=== PATIENT | male | born 1940 | race Asian ===

== ENCOUNTER 2017-03-17 19:40 | Emergency (ER) | payer OTHER ==
[2017-03-17 19:55] VITALS: BP 128/74; PULSE 75; TEMP 98; BMI 25.7
--- NOTE | 2017-03-17 20:25 | PDOC ---
History of Present Illness - History of Present Illness Initial Comments: 03/17/17 20:27 The patient is a 76 year old male, with a significant past medical history of hypertension, who presents to the emergency department with a skin avulsion to his left 1st digit for over a week. The patient states he peeled off a flap of skin and has had an open wound to his left 1st digit since. He reports putting bacitracin daily, but denies improvement of his wound. He denies pain, but reports numbness to the distal end of his 1st left digit. He states there was no wound to the digit prior to noticing the skin he peeled off. He reports having an appointment with his PCP in 03/08/17. He reports a former history of diabetes, however, states his PCP discontinued his metformin a while ago because he no longer needed it. He denies chest pain, shortness of breath, headache and dizziness. He denies fever, chills, nausea, vomit, diarrhea and constipation. He denies dysuria, frequency, urgency and hematuria. Allergies: NKDA <Brittany Charles - Last Filed: 03/17/17 20:26> <Ector Renee - Last Filed: 03/18/17 03:57> - General Chief Complaint: Pain, Acute Stated Complaint: SKIN PEELED OFF LEFT INDEX FINGER Past History <Brittany Charles - Last Filed: 03/17/17 20:26> - Past Medical History HTN: Yes - Immunization History Immunization Up to Date: Yes - Psycho/Social/Smoking Cessation Hx Anxiety: No Suicidal Ideation: No Smoking History: Never smoked Have you smoked in the past 12 months: No Information on smoking cessation initiated: No Hx Alcohol Use: No Drug/Substance Use Hx: No Substance Use Type: None <Ector Renee - Last Filed: 03/18/17 03:57> - Past Medical History Allergies/Adverse Reactions: Allergies Allergy/AdvReac Type Severity Reaction Status Date / Time No Known Allergies Allergy Verified 03/17/17 19:41 Home Medications: Ambulatory Orders Losartan Potassium 100 mg PO DAILY 03/17/17 Nifedipine [Procardia Xl] 60 mg PO DAILY 03/17/17 Review of Systems - Review of Systems Able to Perform ROS?: Yes Comments:: 03/17/17 20:27 CONSTITUTIONAL: Absent: fever, chills, diaphoresis, generalized weakness, malaise, loss of appetite HEENT: Absent: rhinorrhea, nasal congestion, throat pain, throat swelling, difficulty swallowing, mouth swelling, ear pain, eye pain, visual Changes CARDIOVASCULAR: Absent: chest pain, syncope, palpitations, irregular heart rate, lightheadedness , peripheral edema RESPIRATORY: Absent: cough, shortness of breath, dyspnea with exertion, orthopnea, wheezing, stridor, hemoptysis GASTROINTESTINAL: Absent: abdominal pain, abdominal distension, nausea, vomiting, diarrhea, constipation, melena, hematochezia GENITOURINARY: Absent: dysuria, frequency, urgency, hesitancy, hematuria, flank pain, genital pain MUSCULOSKELETAL: Absent: myalgia, arthralgia, joint swelling SKIN: (+) avulsion with distal numbness to left 1st digit. Absent: rash, itching, pallor HEMATOLOGIC/IMMUNOLOGIC: Absent: easy bleeding, easy bruising, lymphadenopathy, frequent infections ENDOCRINE: Absent: unexplained weight gain, unexplained weight loss, heat intolerance, cold intolerance NEUROLOGIC: Absent: headache, focal weakness or paresthesias, dizziness, unsteady gait, seizure, mental status changes, bladder or bowel incontinence PSYCHIATRIC: Absent: anxiety, depression, suicidal or homicidal ideation, hallucinations. <Brittany Charles - Last Filed: 03/17/17 20:26> *Physical Exam - Vital Signs Last Vital Signs Temp Pulse Resp BP Pulse Ox 98 F 75 16 128/74 97 03/17/17 19:51 03/17/17 19:51 03/17/17 19:51 03/17/17 19:51 03/17/17 19:51 - Physical Exam Comments: 03/17/17 20:28 GENERAL: Well developed, well nourished. Awake and alert. No acute distress. HEENT: Normocephalic, atraumatic. PERRLA, EOMI. No conjunctival pallor. Sclera are non- icteric. Moist mucous membranes. Oropharynx is clear. NECK: Supple. Full ROM. No JVD. Carotid pulses 2+ and symmetric, without bruits. No thyromegaly. No lymphadenopathy. MUSCULOSKELETAL Normal range of motion at all joints. No bony deformities or tenderness. No CVA tenderness. EXTREMITIES: No cyanosis. No clubbing. No edema. No calf tenderness. SKIN: (+) Stage 4 skin avulsion on the palmar side of the distal 1st digit of Left upper extremity without surrounding erythema or increased warmth. Normal capillary refill. No jaundice. NEUROLOGICAL: Alert, awake, appropriate. Cranial nerves 2-12 intact. No motor deficits in the in face, upper extremities and lower extremities. Normoreflexic in the upper and lower extremities. Normal speech. Toes are down-going bilaterally. Gait is normal without ataxia. PSYCHIATRIC: Cooperative. Good eye contact. Appropriate mood and affect. <Brittany Charles - Last Filed: 03/17/17 20:26> - Vital Signs Last Vital Signs Temp Pulse Resp BP Pulse Ox 98 F 75 16 128/74 97 03/17/17 19:51 03/17/17 19:51 03/17/17 19:51 03/17/17 19:51 03/17/17 19:51 <Ector Renee - Last Filed: 03/18/17 03:57> Medical Decision Making - Medical Decision Making 03/18/17 03:56 skin avulsion/ ulceration topical skin care plastics fu <Ector Renee - Last Filed: 03/18/17 03:57> *DC/Admit/Observation/Transfer - Attestations Scribe Attestion: 03/17/17 20:30 Documentation prepared by Brittany Charles, acting as medical records technician for Emergency Dept,Physician, <Brittany Charles - Last Filed: 03/17/17 20:26> <Ector Renee - Last Filed: 03/18/17 03:57> Diagnosis at time of Disposition: Skin avulsion - Discharge Dispostion Disposition: HOME Condition at time of disposition: Stable - Patient Instructions Additional Instructions: Please follow-up with plastic surgery
== END 2017-03-17 20:29 | disposition home or self-care (01) ==
LOC: FER 19:40
DX: S61.002A Unspecified open wound of left thumb without damage to nail, initial encounter (principal); I10 Essential (primary) hypertension; X58.XXXA Exposure to other specified factors, initial encounter; Y93.9 Activity, unspecified; Y92.9 Unspecified place or not applicable
CPT/HCPCS: 99281-25